=== PATIENT | female | born 1965 | race Caucasian/White ===

== ENCOUNTER 2017-01-20 09:30 | Inpatient (IN) | payer OTHER, MEDICARE ==
[2017-01-20] VITALS (426 sets, daily range): BP systolic 89–131; BP diastolic 68–89; PULSE 58–82; TEMP 97.7–100; O2SAT 79–100
[~2017-01-20] VITALS: Ht 172.7 cm; Wt 78.5 kg
[2017-01-20] MEDS ORDERED: ZOMIG 2.5MG2.5 MG PO (10:26)
[2017-01-20] MEDS ORDERED: MOBIC15 MG PO (10:27)
[2017-01-20] MEDS ORDERED: INDERAL LA 80MG80 MG PO (10:27)
[2017-01-20] MEDS ORDERED: DETROL LA4 PO (10:29)
[2017-01-20] MEDS ORDERED: CYMBALTA 30MG30 MG PO (10:29)
[2017-01-20] MEDS ORDERED: VENTOLIN0.09 MG IH (10:31)
[2017-01-20] MEDS ORDERED: XALATAN EYE DROPS OU (10:32)
[2017-01-20] MEDS ORDERED: NORCO 325 MG-51 TAB PO (10:34)
[2017-01-20 12:01] LABS: HEMATOCRIT 42.8 % (37.0-47.0); HEMOGLOBIN 14.5 g/dl (12.5-16.0); MEAN CELL VOLUME 96 fl (80.0-100.0); MEAN CORPUSCULAR HEMOGLOBIN 32 pg (27.0-31.0); MEAN CORPUSCULAR HGB CONC 34 g/dl (33.0-37.0); PLATELET COUNT 117 K/mm3 (130-400); RED BLOOD COUNT 4.47 M/mm3 (4.10-5.30); REDCELL DISTRIBUTION WIDTH-CV 12.3 % (11.5-14.5); WHITE BLOOD COUNT 10.4 K/mm3 (4.8-10.8)
[2017-01-20 12:10] LABS: PROTHROMBIN TIME 10.7 SECONDS (9.7-12.8)
[2017-01-20 12:21] LABS: ALBUMIN 3.8 gm/dL (3.5-5.0); TOTAL PROTEIN 6.4 gm/dL (6.4-8.2)
[2017-01-20 12:44] LABS: TROPONIN-I 24.5 ng/mL (0.000-0.034)
[2017-01-20 12:51] LABS: BILIRUBIN,DIRECT 0.4 mg/dL (0.0-0.4); BILIRUBIN,TOTAL 0.4 mg/dL (0.0-1.0)
[2017-01-21] VITALS (471 sets, daily range): BP systolic 110–116; BP diastolic 71–81; PULSE 63–82; TEMP 98.4–99; O2SAT 89–100
[2017-01-21 06:07] LABS: HEMATOCRIT 39.7 % (37.0-47.0); HEMOGLOBIN 13.3 g/dl (12.5-16.0); MEAN CELL VOLUME 96 fl (80.0-100.0); MEAN CORPUSCULAR HEMOGLOBIN 32 pg (27.0-31.0); MEAN CORPUSCULAR HGB CONC 34 g/dl (33.0-37.0); MEAN PLATELET VOLUME 12.6 fl (7.4-10.4); PLATELET COUNT 89 K/mm3 (130-400); RED BLOOD COUNT 4.14 M/mm3 (4.10-5.30); REDCELL DISTRIBUTION WIDTH-CV 12.4 % (11.5-14.5); WHITE BLOOD COUNT 7.1 K/mm3 (4.8-10.8)
[2017-01-21 06:18] LABS: CALCIUM 8.7 mg/dL (8.4-10.2); CREATININE, serum 0.93 mg/dL (0.52-1.25); POTASSIUM 3.8 mmol/L (3.4-5.0)
[2017-01-21] MEDS ORDERED: LOPRESSOR 225 MG/TAB PO (08:59)
[2017-01-21] MEDS ORDERED: PLAVIX 75MG TAB75 MG PO (09:00)
[2017-01-21] MEDS ORDERED: ASPIRIN 81M81 MG/TA2 PO (09:00)
[2017-01-21] MEDS ORDERED: ZESTRIL2.5 MG PO (09:01)
[2017-01-21] MEDS ORDERED: LIPITOR 80MG80 MG PO (09:01)
[2017-01-21] MEDS ORDERED: NITROSTAT0.4 MG/TAB SL (09:02)
== END 2017-01-21 09:37 | disposition home or self-care (01) | DRG 247 ==
LOC: SURG 09:30 → ICU 17:34
PROVIDERS: Internal Medicine Interventional Cardiology
PROC: 027034Z Dilation of Coronary Artery, One Artery with Drug-eluting Intraluminal Device, Percutaneous Approach (ICD-10-PCS; principal; 2017-01-20)
PROC: 02C03ZZ Extirpation of Matter from Coronary Artery, One Artery, Percutaneous Approach (ICD-10-PCS; 2017-01-20)
PROC: B2111ZZ Fluoroscopy of Multiple Coronary Arteries using Low Osmolar Contrast (ICD-10-PCS; 2017-01-20)
PROC: B2151ZZ Fluoroscopy of Left Heart using Low Osmolar Contrast (ICD-10-PCS; 2017-01-20)
DX: I21.4 Non-ST elevation (NSTEMI) myocardial infarction (principal); J44.9 Chronic obstructive pulmonary disease, unspecified; F17.210 Nicotine dependence, cigarettes, uncomplicated
CPT/HCPCS: C1725; C1757; C1760; C1769; C1874; C1887; C1894; C9600; J1327; J1650; J2250; J3010; J7030; Q9967

== ENCOUNTER 2018-02-28 11:33 | Inpatient (IN) | payer MEDICARE, OTHER ==
[~2018-02-28] VITALS: Ht 172.7 cm; Wt 80.5 kg
[~2018-02-28 11:33] MED LIST: ASPIRIN 81M81 MG/TA2 PO; CYMBALTA 30MG30 MG PO; DETROL LA4 PO; INDERAL LA 80MG80 MG PO; LIPITOR 80MG80 MG PO; LOPRESSOR 225 MG/TAB PO; MOBIC15 MG PO; NITROSTAT0.4 MG/TAB SL; NORCO 325 MG-51 TAB PO; PLAVIX 75MG TAB75 MG PO; VENTOLIN0.09 MG IH; XALATAN EYE DROPS OU; ZESTRIL2.5 MG PO; ZOMIG 2.5MG2.5 MG PO
[2018-03-21] VITALS (11 sets, daily range): BP systolic 130–154; BP diastolic 74–93; PULSE 60–92; TEMP 97.6–98.9
[2018-03-21] MEDS ORDERED: EFFEXOR XR75 MG/CAP PO (11:34)
[2018-03-21] MEDS ORDERED: LIPITOR 80MG80 MG PO (11:35)
[2018-03-21] MEDS ORDERED: COREG 3.123.125 MG/T PO (11:36)
[2018-03-21] MEDS ORDERED: AMITRIPTYLINE H25 M1 PO (11:50)
[2018-03-22 04:25] VITALS: BP 139/84; PULSE 70; TEMP 98.3
[2018-03-22 08:55] VITALS: BP 153/84; PULSE 82; TEMP 97.5
[2018-03-22 11:30] VITALS: BP 154/89; PULSE 78; TEMP 97.2
[2018-03-22 15:06] VITALS: BP 154/84; PULSE 80; TEMP 97.8
== END 2018-03-22 16:30 | disposition home or self-care (01) | DRG 470 ==
LOC: JCC 03-20 13:00
PROVIDERS: Orthopaedic Surgery
PROC: 0SRC0J9 Replacement of Right Knee Joint with Synthetic Substitute, Cemented, Open Approach (ICD-10-PCS; principal; 2018-03-21 14:30)
DX: M17.11 Unilateral primary osteoarthritis, right knee (principal); J44.9 Chronic obstructive pulmonary disease, unspecified; E11.9 Type 2 diabetes mellitus without complications; F17.210 Nicotine dependence, cigarettes, uncomplicated
CPT/HCPCS: A9284; C1713; C1776; J0690; J1100; J2250; J2270; J2274; J2704; J7042; J7120

== ENCOUNTER 2018-11-09 11:09 | Day surgery (SDC) | payer MEDICARE, OTHER ==
[2018-11-09] VITALS (10 sets, daily range): BP systolic 125–146; BP diastolic 78–95; PULSE 63–79; TEMP 98
[~2018-11-09] VITALS: Ht 172.7 cm; Wt 73.2 kg
[~2018-11-09 11:09] MED LIST changes: +AMITRIPTYLINE H25 M1 PO; +COREG 3.123.125 MG/T PO; +EFFEXOR XR75 MG/CAP PO
[2018-11-09 12:22] LABS: HEMOGLOBIN 13.4 g/dl (12.5-16.0); MEAN CELL VOLUME 98 fl (80.0-100.0); MEAN CORPUSCULAR HEMOGLOBIN 32 pg (27.0-31.0); MEAN CORPUSCULAR HGB CONC 33 g/dl (33.0-37.0); MEAN PLATELET VOLUME 11.3 fl (7.4-10.4); PLATELET COUNT 140 K/mm3 (130-400); REDCELL DISTRIBUTION WIDTH-CV 12.4 % (11.5-14.5)
[2018-11-09 12:27] LABS: CALCIUM 9.1 mg/dL (8.4-10.2); CREATININE, serum 0.92 (0.52-1.25); POTASSIUM 4.3 mmol/L (3.4-5.0)
[2018-11-09 12:57] LABS: PROTHROMBIN TIME 11.3 SECONDS (9.7-12.8)
--- NOTE | 2018-11-09 13:43 | NUR ---
PLEASE SEE MERGE FOR ALL MEDICATION ADMINISTRATION TIMES,SEE MERGE ALSO FOR RASS ASSESSMENT DATA DURING AND POST PROCEDURE.
--- NOTE | 2018-11-09 14:24 | NUR ---
REPORT RECEIVED BY LILA HILL RN.
--- NOTE | 2018-11-09 14:28 | NUR ---
PT RETURNED FROM [facility] VIA BED BY SERGIO QUINTANILLA. PT AWAKE ALERT AND ORIENTED.
--- NOTE | 2018-11-09 14:45 | NUR ---
PT ABLE TO DRINK WITHOUT DIFFICULTY
--- NOTE | 2018-11-09 14:48 | NUR ---
11C OF AIR PRESENT IN TR BAND.
--- NOTE | 2018-11-09 16:00 | NUR ---
PT AMBULATED TO RESTROOM AND WAS ABLE TO VOID WITHOUT DIFFICULTY.
--- NOTE | 2018-11-09 16:03 | NUR ---
3CC OF AIR REMOVED FROM TR BAND.
--- NOTE | 2018-11-09 16:37 | NUR ---
ATTEMPTED TO RELEASE REST OF AIR FROM TR BAND. AIR REINFUSED TO 8CC. WILL CONTINUE TO MONITOR.
--- NOTE | 2018-11-09 16:41 | NUR ---
DISCHARGE INSTRUCTIONS REVEIWED WITH PATIENT AND FAMILY INCLUDING RESTRICTIONS AND FOLLOWUP APTS.
--- NOTE | 2018-11-09 16:50 | NUR ---
TR BAND REMOVED. PT HAD SLIGHT OOZING INITIALLY. NO ADDITIONAL OOZING NOTED.
--- NOTE | 2018-11-09 16:56 | NUR ---
IV DISCONTINUED. PT TRANSPORTED TO ENTRANCE WHERE AWAITED WITH CAR. PT AMBULATED TO WHEELCHAIR AND CAR WITHOUT DIFFICULTY.
== END 2018-11-09 16:58 | disposition home or self-care (01) ==
LOC: COL.CAR 11:09
PROVIDERS: Internal Medicine Interventional Cardiology
DX: I25.110 Atherosclerotic heart disease of native coronary artery with unstable angina pectoris (principal); E78.5 Hyperlipidemia, unspecified; F17.210 Nicotine dependence, cigarettes, uncomplicated; I11.0 Hypertensive heart disease with heart failure; I50.22 Chronic systolic (congestive) heart failure; Z79.82 Long term (current) use of aspirin; Z79.02 Long term (current) use of antithrombotics/antiplatelets; Z96.659 Presence of unspecified artificial knee joint; Z82.3 Family history of stroke
CPT/HCPCS: J1644; J2250; J3010; Q9967

== ENCOUNTER → 2018-12-11 | Outpatient (CLI) | payer MEDICARE, OTHER ==
[2018-12-11 10:12] LABS: HEMATOCRIT 43.4 % (37.0-47.0); HEMOGLOBIN 14.1 g/dl (12.5-16.0); MEAN CELL VOLUME 97 fl (80.0-100.0); MEAN CORPUSCULAR HEMOGLOBIN 31 pg (27.0-31.0); MEAN CORPUSCULAR HGB CONC 33 g/dl (33.0-37.0); MEAN PLATELET VOLUME 11.6 fl (7.4-10.4); PLATELET COUNT 165 K/mm3 (130-400); RED BLOOD COUNT 4.49 M/mm3 (4.10-5.30); REDCELL DISTRIBUTION WIDTH-CV 12.7 % (11.5-14.5)
[2018-12-11 11:08] LABS: ERYTHROCYTE SEDIMENTATION RATE 2 mm/hr (0-30)
== END ==
LOC: COL.LAB 09:39
PROVIDERS: Orthopaedic Surgery
DX: M25.561 Pain in right knee (principal); Z96.651 Presence of right artificial knee joint

== ENCOUNTER 2020-10-05 12:30 | Day surgery (SDC) | payer MEDICARE, OTHER ==
[2020-10-05] VITALS (9 sets, daily range): BP systolic 105–129; BP diastolic 78–94; PULSE 72–78; TEMP 97.6
[~2020-10-05] VITALS: Ht 172.8 cm; Wt 81.6 kg
[2020-10-05] MEDS ORDERED: BREZTRI AEROS10.7 GM IH (12:42)
[2020-10-05] MEDS ORDERED: IMDUR 30MG30 MG/TAB PO (12:43)
[2020-10-05] MEDS ORDERED: ENTRESTO 24 MG1 EACH PO (12:44)
[2020-10-05 13:07] LABS: HEMATOCRIT 43.2 % (37.0-47.0); HEMOGLOBIN 14.2 g/dl (12.5-16.0); MEAN CELL VOLUME 98 fl (80.0-100.0); MEAN CORPUSCULAR HEMOGLOBIN 32 pg (27.0-31.0); MEAN CORPUSCULAR HGB CONC 33 g/dl (33.0-37.0); MEAN PLATELET VOLUME 11.6 fl (7.4-10.4); PLATELET COUNT 152 K/mm3 (130-400); RED BLOOD COUNT 4.41 M/mm3 (4.10-5.30); REDCELL DISTRIBUTION WIDTH-CV 12.4 % (11.5-14.5)
[2020-10-05 13:17] LABS: CALCIUM 8.9 mg/dL (8.4-10.2); CREATININE, serum 1.01 (0.52-1.25); POTASSIUM 4.1 mmol/L (3.4-5.0)
[2020-10-05 13:38] LABS: PROTHROMBIN TIME 10.8 SECONDS (9.7-12.8)
[2020-10-05 13:41] LABS: PARTIAL THROMBOPLASTIN TIME 30.8 SECONDS (26.0-37.0)
--- NOTE | 2020-10-05 15:15 | NUR ---
Report from Sara QUINTANILLA. Transferred from [facility] by bed. Alert and oriented, denies pain and needs at this time. Right Tband with 15 cc air CD&I, good pulses and cap refill < 3 secs
--- NOTE | 2020-10-05 18:06 | NUR ---
15 cc air released from right Tband and dressing applied. INT discontinued intact. Discharge instructions given
--- NOTE | 2020-10-05 18:16 | NUR ---
Transferred to private car by joy
== END 2020-10-05 18:17 | disposition home or self-care (01) ==
LOC: COL.CAR 12:30
PROVIDERS: Internal Medicine Interventional Cardiology
DX: I25.118 Atherosclerotic heart disease of native coronary artery with other forms of angina pectoris (principal); I10 Essential (primary) hypertension; T82.855A Stenosis of coronary artery stent, initial encounter; I11.0 Hypertensive heart disease with heart failure; I50.22 Chronic systolic (congestive) heart failure; F17.210 Nicotine dependence, cigarettes, uncomplicated; J44.9 Chronic obstructive pulmonary disease, unspecified; Z20.822 Contact with and (suspected) exposure to COVID-19; Z79.82 Long term (current) use of aspirin; Z79.899 Other long term (current) drug therapy
CPT/HCPCS: C1769; J1644; J2250; J3010; Q9967

== ENCOUNTER → 2022-01-06 | Outpatient (CLI) | payer MEDICARE, OTHER ==
[~2022-01-06] MED LIST changes: +BREZTRI AEROS10.7 GM IH; +ENTRESTO 24 MG1 EACH PO; +IMDUR 30MG30 MG/TAB PO
== END ==
LOC: COL.RAD 14:59
DX: Z12.2 Encounter for screening for malignant neoplasm of respiratory organs (principal); J43.9 Emphysema, unspecified; F17.200 Nicotine dependence, unspecified, uncomplicated